=== PATIENT | male | born 1995 | race Hispanic/Latino ===

== ENCOUNTER → 2022-09-15 | Outpatient (CLI) | payer BC | LOC: US 07:14 | PROVIDERS: ATTEND Nurse Practitioner | DX: R10.10 Upper abdominal pain, unspecified (principal) | CPT/HCPCS: 76700 ==

== ENCOUNTER → 2022-09-17 | Day surgery (SDC) | payer BC ==
[~2022-09-17] MED LIST: FENTANYL CITRATE/PF 100MCG/2 ML INJ ONE; HYOSCYAMINE SULFATE 0.5 MG/ML INJ ONE; LACTATED RINGER'S 1,000 ML ONE; MEPERIDINE HCL INJ 25 MG/ML VIAL IV ONE; MEPERIDINE HCL INJ 25 MG/ML VIAL ONE; MIDAZOLAM HCL 2 MG/2 ML VIAL ONE; PROPOFOL IV EMULSION 10 MG/ML 20 ML VIAL ONE
[2022-09-17 15:52] VITALS: TEMP 97.1
[2022-09-17 16:20] VITALS: BP 121/76; PULSE 50; RESP 16; O2SAT 98
[2022-09-17 18:33] LABS: WBC,FECAL (FECAL LACTOFERRIN) NEGATIVE (NEGATIVE)
== END | disposition home or self-care (01) ==
LOC: OR 16:38
PROVIDERS: ATTEND Internal Medicine Gastroenterology
DX: K29.50 Unspecified chronic gastritis without bleeding (principal); B96.81 Helicobacter pylori [H. pylori] as the cause of diseases classified elsewhere; K29.80 Duodenitis without bleeding; K52.9 Noninfective gastroenteritis and colitis, unspecified; K26.9 Duodenal ulcer, unspecified as acute or chronic, without hemorrhage or perforation; K29.60 Other gastritis without bleeding; K20.90 Esophagitis, unspecified without bleeding; K21.9 Gastro-esophageal reflux disease without esophagitis; K62.89 Other specified diseases of anus and rectum; K64.8 Other hemorrhoids; D72.820 Lymphocytosis (symptomatic); Z71.3 Dietary counseling and surveillance; Z88.6 Allergy status to analgesic agent; Z68.26 Body mass index [BMI] 26.0-26.9, adult
CPT/HCPCS: 36415; 43239; 45380; 83630; 83993; 87045; 87177; 87324; 87328; 87449; C9113; J1980; J2175; J2250; J2704; J3010; J7121